=== PATIENT | female | born 1950 | race Caucasian/White ===

== ENCOUNTER 2024-05-19 11:30 | Outpatient (REF) | payer MEDICARE, OTHER, SELFPAY ==
--- OUTSIDE RECORDS SUMMARY | 2024-05-19 11:37 | XMS_ITS | Continuity of Care Document ---
Author Organization [place], Main Office Address [address] [facility] [address] [place] [address] Care Team Providers Care Tank Storage Supervisor Name Role Phone HERBER WOLFF Primary Care Provider SARAH BARBER Referring Provider [phone] NIK FLOWER Referring Provider [phone] LUISA LEGGETT Referring Provider [phone] CHANO GUEVARA General Surgeon SHANTELLE FAITH Referring Provider ELVA PANG Orthopedic Surgeon Assessment Encounter Date Assessment Date Assessment LastModified by Organization Details LastModified Time 04/26/2024 04/26/2024 Discussed with patient the signs/symptom s warranted for a return to office visit and/or an ER visit. Patient understood and agreed with the plan. [email or web address] Not available 04/26/2024 14:30:21 Plan of Treatment Reminders Order Date Submit Date Provider Last Modified By Organization Details Last Modified Time Details Appointments FOLLOW UP 30MIN 2024 12:45P M Herber davies MD Not available Not available Not available Lab None recorded . Referral None recorded . Procedures cerumen removal (PROC) 2023 024 LEANN In-Office Order, Internal Use Only DO Not Attach Compendium DO Not Attach Compendium, Do Not Delete/merge, [id number] 04/26/2024 15:09:37 Surgeries None recorded . Imaging None recorded . Medication Orders None recorded . Patient TargetsNo targets recorded. Patient InstructionsNo instructions recorded. Reason for Referral None Reported. Results Created Date Observation Date Name Description Value Unit Range Abnormal Flag Note LastModifiedBy Organization Detail LastModifiedTime 04/26/20 24 04/26/2024 cerum en remov al (PROC ) done by Jacinta Not Available In-Office Order Internal Use Only DO Not Attach Compendium DO Not Attach Compendium, Do Not Delete/merge, [id number] 04/26/2024 14:16:31 Result Notes None recorded. Problems Name Problem SNOMED Code Status Onset Date Resolution Date Notes Provider Name and Address Organization Details Recorded Time Screenin g for malignan t neoplasm of cervix Completed 201201/10/2014 RECORDED 05/17/20 13 8:21AM BY SHARON DE OLIVEIRA ON/J CARLOS Wolff MD [address] [facility] [address], [place], [address] , [facility], [place] 6 07:11:06 Screenin g for malignan t neoplasm of colon Completed 201201/10/2014 RECORDED 05/17/20 13 8:21AM BY SHARON DE OLIVEIRA ON/J CARLOS Wolff MD [address] [facility] [address], [place], [address] , [facility], [place] 6 07:11:06 Cough [id number] Completed 201201/10/2014 IMPRESSI ON: X 4 DAYS, NO FEVERS AND WITH CLEAR LUNGS. PER PT REPORT DOES HAVE TENDENCY TO DEVELOP BRONCHIT IS. PROVIDED WITH SAMPLE ADVAIR INHALER AND INSTRUCT ED RE USE. REC REST, FLUIDS, OTC COUGH MED OK. CALL OFFICE FOR WORSENIN G/PRN.; RECORDED 05/17/20 13 8:21AM BY SHARON DE OLIVEIRA ON/J CARLOS Montenegro [place] [facility] 7 11:20:15 Influenz a vaccine needed [id number] 06 Completed 201201/10/2014 RECORDED 05/17/20 13 8:21AM BY SHARON DE OLIVEIRA/J CARLOS Wolff MD [address] [facility] [address], [place], [address] , [facility], [place] 6 07:11:06 Adult health examinat ion Completed 201201/10/2014 RECORDED 05/17/20 13 8:20AM BY SHARON DE OLIVEIRA ON/J CARLOS Wolff MD [address] [facility] [address], [place], [address] , [facility], [place] 6 07:11:06 Hypercho lesterol emia 03026298 Completed 201101/10/2014 RECORDED 04/20/20 12 12:49PM BY SHARON DE OLIVEIRA ON/J CARLOS Wolff MD [address] [facility] [address], [place], [address] , [facility], [place] 6 07:11:06 Impacted cerumen 71601491 Completed 201201/10/2014 RECORDED 05/17/20 13 8:21AM BY SHARON DE OLIVEIRA ON/J CARLOS Montenegro [facility] 7 11:19:47 Injury of elbow 460681618 Completed 201301/10/2014 RECORDED 08/11/19 14 8:21AM BY SHARON DE OLIVEIRA ON/J CARLOS Wolff MD [address] [facility] [address], [place], [address] , [facility], [place] 6 07:11:06 Screenin g for malignan t neoplasm of breast Completed 201201/10/2014 RECORDED 05/17/20 13 8:21AM BY SHARON DE OLIVEIRA/J CARLOS Wolff MD [address] [facility] [address], [place], [address] , [facility], [place] 6 07:11:06 Neck pain 41553084 Completed 201201/10/2014 STORY: PROBLEM SINCE 2007. SEEN BY DR NEWMAN, DR COHEN AND DR TEJEDA. ALSO SEEN BY ACUPUNCT URE AND CHIROPRA CTY AND PAIN MGMT. RECD INJECTIO NS W/O MUCH HELP. WANTS TO AVOID NARCOTIC S. USING TRAMADOL AND SKELAXIN WITH SOME HELP.; RECORDED 08/18/19 13 9:12AM BY SHARON DE OLIVEIRA ON/J CARLOS Wolff MD [address] [facility] [address], [place], [address] , [facility], [place] 6 07:11:06 Osteoart hritis 804924286 Completed 201201/10/2014 STORY: INVOLVIN G MOST JOINTS. SEEN BY RHEUM IN THE PAST. ADVISED ON EXERCISE AND NSAID'S. ; RECORDED 08/18/19 13 9:12AM BY SHARON DE OLIVEIRA ON/ADDLETY Wolff MD [address] [facility] [address], [place], [address] , [facility], [place] 6 07:11:06 Impacted cerumen 84551693 Completed 08/12/2016 Sheeba espana, [place] [facility] 7 11:19:47 Otalgia 32948361 Active Not Available [facility] 3 22:22:04 Acute upper respirat ory infectio n 16618418 Completed 08/12/2016 Sheeba espana [facility] 7 11:20:01 Wheezing 84266492 Completed 08/12/2016 Sheeba espana [facility] 7 11:19:58 Syncope 554421373 Completed 08/12/2016 Sheeba espana, [facility] 7 11:19:43 Hearing loss 92765020 Active hearing aids may be helpful but she is currentl y not interest ed. Not Available [facility] 3 22:22:04 Paresthe [facility] 463552698 Active Followed by Dr Barber and schedule d for EMG Not Available [facility] 3 22:22:04 Adult health examinat ion Completed 04/06/2015 Herber Wolff MD [address] [facility] [address], [place], [address] , [facility], [place] 6 07:11:06 Yaima chavez present 223506720 Active Not Available [facility] 3 22:22:04 Osteopor osis 31578650 Active Not Available [facility] 3 22:22:04 Multiple joint pain 73328733 Completed 09/25/2016 [facility] 16:05[facility]33 Patient status finding [id number] Completed 201303/29/2014 RECORDED 08/11/19 14 3:33PM BY SELVIN HERNADEZ MA, OFFICE VISIT Herber Wolff MD [address] [facility] [address], [place], [address] , [facility], [place] 6 07:11:06 Screenin g for malignan t neoplasm of cervix Completed 201212/14/2013 RECORDED 05/17/20 13 8:21AM BY SHARON DE OLIVEIRA ON/ADDEN DUM Herber Wolff MD [address], [place], [address] , [facility], [place] 6 07:11:06 Back problem 748236076 Completed 201303/29/2014 RECORDED 08/11/19 14 3:33PM BY SELVIN HERNADEZ MA, OFFICE VISIT Herber Wolff MD [address] [facility] [address], [place], [address] , [facility], [place] 6 07:11:06 Low back pain 671764276 Active PSSP; received injectio n for radiculo stefanie and paresthe anna Not Available [facility] 3 22:22:04 Chronic pain 68625942 Active On pain meds initiall y started by Dr Bailey. HILLARY Berger, [place] [facility] 4 14:06:20 Screenin g for malignan t neoplasm of colon Completed 201212/14/2013 RECORDED 05/17/20 13 8:21AM BY SHARON DE OLIVEIRA ON/ADDLETY Wolff MD [address] [address], [place], [address] , [facility], [place] 6 07:11:06 Constipa tion 15985536 Active Not Available [facility] 3 22:22:04 Cough 80732265 Completed 201212/14/2013 IMPRESSI ON: X 4 DAYS, NO FEVERS AND WITH CLEAR LUNGS. PER PT REPORT DOES HAVE TENDENCY TO DEVELOP BRONCHIT IS. PROVIDED WITH SAMPLE ADVAIR INHALER AND INSTRUCT ED RE USE. REC REST, FLUIDS, OTC COUGH MED OK. 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 Not Available [facility] 3 22:22:04 Pain in elbow 64199208 Completed 08/12/2016 Sheeba espana, [facility] 7 11:20:12 Influenz a vaccine needed 23486534337 06 Completed 201212/14/2013 RECORDED 05/17/20 13 8:21AM BY SHARON DE OLIVEIRA/J CARLOS Wolff MD [address] [facility] [address], [place], [address] , [facility], [place] 6 07:11:06 Adult health examinat ion Completed 201212/14/2013 RECORDED 05/17/20 13 8:20AM BY SHARON DE OLIVEIRA ON/J CARLOS Wolff MD [address], [place], [address] , [facility], [place] 6 07:11:06 History of malignan t neoplasm of cervix 495794040 Completed 08/12/2016 Sheeba espana, [facility] 7 11:19:55 Pure hypercho lesterol emia 234526120 Completed 07/03/2016 Herber Wolff MD [address], [place], [address] , [facility], [place] 7 16:02:27 Hypercho lesterol emia 11212236 Completed 201112/14/2013 RECORDED 04/20/20 12 12:49PM BY DAVONTE GREENFIELD I ANNOTATI ON/ADDEN DUM Herber Wolff MD [address], [place], [address] , [facility], [place] 6 07:11:06 Impacted cerumen 10345855 Completed 201212/14/2013 RECORDED 05/17/20 13 8:21AM BY SUZANNE DE OLIVEIRAATI ON/ADDEN DUM Sheeba espana, [facility] 7 11:19:47 Injury of elbow 892302176 Completed 201312/14/2013 RECORDED 08/11/19 14 8:21AM BY SUZANNE DE OLIVEIRAATI ON/ADDEN DUM Herber Wolff MD [address], [place], [address] , [facility], [place] 6 07:11:06 Screenin g for malignan t neoplasm of breast Completed 201212/14/2013 RECORDED 05/17/20 13 8:21AM BY SUZANNE DE OLIVEIRAATI ON/ADDEN DUM Herber Wolff MD [address], [place], [address] , [facility], [place] 6 07:11:06 Neck pain 26437436 Completed 201212/14/2013 STORY: PROBLEM SINCE 2007. SEEN BY DR NEWMAN, DR COHEN AND DR TEJEDA. ALSO SEEN BY ACUPUNCT URE AND CHIROPRA CTY AND PAIN MGMT. RECD INJECTIO NS W/O MUCH HELP. WANTS TO AVOID NARCOTIC S. USING TRAMADOL AND SKELAXIN WITH SOME HELP.; RECORDED 08/18/19 13 9:12AM BY SHARON DE OLIVEIRA ON/J CARLOS Wolff MD [address] [facility] [address], [place], [address] , [facility], [place] 6 07:11:06 Osteoart hritis 011261337 Completed 201212/14/2013 STORY: INVOLVIN G MOST JOINTS. SEEN BY RHEUM IN THE PAST. ADVISED ON EXERCISE AND NSAID'S. ; RECORDED 08/18/19 13 9:12AM BY SHARON DE OLIVEIRA ON/J CARLOS DUM Herber Wolff MD [address] [facility] [address], [place], [address] , [facility], [place] 6 07:11:06 Chronic pain syndrome 506681295 Completed 201303/29/2014 IMPRESSI ON: RECEIVIN G MEDS FROM PAIN MGMT BUT MAY HAVE THIS TRANSFER RED HERE.; RECORDED 11/02/19 14 8:06AM BY ALIYAH DENISE, HISTORIC AL SUMMARY Herber Wolff MD [address] [facility] [address], [place], [address] , [facility], [place] 6 07:11:06 Inspirat ory wheezing 69884808 Active Not Available [facility] 3 22:22:04 Upper respirat ory infectio n 02412430 Completed 08/12/2016 Sheeba espana, [facility] 7 11:20:18 Cough 41369884 Completed 08/12/2016 Sheeba espana, [facility] 7 11:20:15 Chronic neck pain 58858741627 07 Active 2006 Not Available [facility] 3 22:22:04 Fatigue 25098148 Completed 201609/22/2017 Herber Wolff MD [address] [facility] [address], [place], [address] , [facility], [place] 8 17:05:44 Hyperlip idemia 52471818 Active 2017 Not Available [facility] 3 22:22:04 Fatigue 31149657 Active 2017 Not Available [facility] 3 22:22:04 Idiopath ic peripher al neuropat hy 36584007 Active 2017 Not Available [facility] 3 22:22:04 Muscle spasm of head and/or neck 90782603 Active 2018 Not Available [facility] 3 22:22:04 Pain of right shoulder joint 26552521137 373582 Active 2020 Injected at [facility] October 2020. Not Available [facility] 3 22:22:04 Pneumoni tis 373399739 Active 2022 Not Available [facility] 3 22:22:04 Hypergly cemia 43545739 Active 2023 A1C of 6.October. Herber Wolff MD [address] [facility] [address], [place], [address] , [facility], [place] 4 14:26:34 Notes:Some problems listed i n Document: #[id number] could not be added to this patient's chart. Please review this document and add these problems to the patient's chart manually as needed. Problem Notes None recorded. Procedures Surgical History Date Name Laterality Status Provider Name and Address Organization Details Recorded Time 04/26/20 24 Cerumen Removal completed KEILA DYE [address] [facility] [address], [place], [address], [facility], [place] 04/26/2024 14:59:16 01/08/20 24 Chronic Pain Assessment completed Jacinta Babin, MA [facility] 01/08/2024 14:05:00 11/15/19 23 Chronic Pain Assessment completed Kylah yWatt MA [facility] 11/14/2022 14:11:38 09/07/19 23 Cerumen Removal completed MARGOT KEMP MD [address], [place], [address], [facility], [place] 09/06/2022 09:41:32 08/31/19 23 Cerumen Removal completed MARGOT KEMP MD [address], [place], [address], [facility], [place] 08/30/2022 11:12:20 07/24/19 23 Chronic Pain Assessment completed Kenzie Mcconnell MA [facility] 07/24/2022 14:16:12 05/01/20 22 Chronic Pain Assessment completed Kylah Wyatt MA [facility] 05/01/2022 14:26:55 01/03/20 22 Chronic Pain Assessment completed Kylah Wyatt MA [facility] 01/02/2022 11:08:11 09/27/19 22 Chronic Pain Assessment completed Kylah Wyatt MA [facility] 09/26/2021 15:29:54 06/27/19 22 Chronic Pain Assessment completed Kylah Wyatt MA [facility] 06/27/2021 14:03:36 12/19/19 21 Chronic Pain Assessment completed Jacinta Babin MA [facility] 12/18/2020 13:17:40 11/17/19 21 injection completed Dorcas Denise [facility] 12/22/2020 15:02:09 09/21/19 21 Chronic Pain Assessment completed Sue Flynn MA [facility] 09/20/2020 14:24:01 06/22/19 21 Chronic Pain Assessment completed Sue Flynn MA [facility] 06/22/2020 14:21:42 03/28/20 20 Chronic Pain Assessment completed Sue Flynn MA [facility] 03/28/2020 13:40:48 12/14/19 20 Chronic Pain Assessment completed Sue Flynn MA [facility] 12/14/2019 14:42:58 09/09/19 20 Chronic Pain Assessment completed Davonte Sheikh [facility] 09/09/2019 12:46:13 06/14/19 20 Chronic Pain Assessment completed Davonte Sheikh [facility] 06/14/2019 14:30:13 03/08/20 19 Chronic Pain Assessment completed Davonte Sheikh [facility] 03/08/2019 15:02:32 12/08/19 19 Chronic Pain Assessment completed Davonte Sheikh [facility] 12/07/2018 14:49:14 09/11/19 19 Chronic Pain Assessment completed uJd Weldon [place] [facility] 09/10/2018 16:16:55 06/15/19 19 Chronic Pain Assessment completed Davonte Sheikh [facility] 06/15/2018 09:38:32 03/26/20 18 open capsulectomy of breast completed Dorcas Denise [facility] 04/01/2018 11:51:23 03/26/20 18 lumpectomy of breast completed Madelaine chaudhari MA [facility] 07/15/2019 15:50:25 03/13/20 18 Chronic Pain Assessment completed Terri Xie [facility] 03/13/2018 16:30:49 01/08/20 18 Chronic Pain Assessment completed Davonte Sheikh [facility] 01/07/2018 14:17:18 09/23/19 18 Mini-Cog Test completed Sheeba Montenegro MA [facility] 09/22/2017 14:35:59 09/23/19 18 Chronic Pain Assessment completed Sheeba Montenegro MA [facility] 09/22/2017 14:32:39 03/27/20 17 Chronic Pain Assessment completed Davonte Sheikh [facility] 03/27/2017 09:31:05 12/26/19 17 Chronic Pain Assessment completed Davonte Sheikh [facility] 12/25/2016 15:45:16 09/26/19 17 Chronic Pain Assessment completed Sheeba Montenegro MA [facility] 09/25/2016 16:10:30 04/02/20 16 Chronic Pain Assessment completed Jacinta Babin MA [facility] 04/02/2016 16:14:32 01/01/20 16 Chronic Pain Assessment completed Davonte Sheikh [facility] 01/01/2016 14:30:55 10/04/19 16 Chronic Pain Assessment completed Davonte Sheikh [facility] 10/04/2015 16:30:48 09/11/19 16 Biopsy skin lesion completed Samaria Hays [facility] 09/14/2015 11:29:12 06/26/19 16 Most Recent Bone Density completed Kylah Wyatt MA [facility] 09/26/2021 15:16:35 05/09/20 15 Breast Implants completed Dorcas Denise [facility] 05/11/2015 15:24:44 11/22/19 15 Most Recent Mammogram completed Kylah Wyatt MA [facility] 09/26/2021 15:15:56 11/22/19 15 Screen mammo doc rev completed Davonte Sheikh [facility] 04/05/2015 11:08:02 07/29/19 15 Echo Transthoracic completed Herber Wolff MD [address], [address] 10/05/2014 06:57:19 02/01/20 13 Cancer Surgery completed Kylah Wyatt MA [facility] 09/26/2021 15:14:54 11/01/19 13 Breast Biopsy completed Kylah Wyatt MA [facility] 09/26/2021 15:14:54 11/27/19 08 Date of Last Colonoscopy completed Madelaine chaudhari MA [facility] 09/28/2021 14:12:22 11/27/19 08 Colonoscopy completed Madelaine chaudhari MA [facility] 09/28/2021 14:13:39 06/02/19 Orthopedic Surgery completed Kylah Wyatt MA [facility] 09/26/2021 15:14:54 06/02/19 Orthopedic Surgery completed Herber Wolff MD [address] [facility] [address], [place], [address], [facility], [place] 03/29/2014 13:48:05 08/31/18 76 Cancer Surgery completed Davonte Sheikh [facility] 07/06/2015 15:30:36 Partial hysterectomy completed Madelaine chaudhari MA [facility] 07/15/2019 15:50:37 Imaging Results None recorded. Procedure Notes None recorded. Medical Equipment None Reported. Allergies Allergen ID Allergen Name Allergen Category Reaction Reaction Severity Criticality Documentation Date Start Date Code Code System Note Provider Name and Address Organization Details Recorded Time 58329 diclofena c Not available nausea severe Not available 12/18/2020 3355 RxNorm Not Available [facility] 3 22:22:01 4835 Vaccine product containin g only Clostridi um tetani antigen (medicina l product) medicatio n Not available Not available Not available 12/14/20132013 90887 2002 SNOMED Sheeba Chenchoby [place] espana [facility] 7 16:07:23 Medications Name Sig Start Date Stop Date Status Note LastModified by Organization Details LastModified Time cephalexi n 500 mg caps active Not Available Not Available Not Available simvastat in 20 mg tabs active Not Available Not Available Not Available tramadol hcl er 100 mg tb24 active Not Available Not Available Not Available fluarix quadrival ent 1895-8734 .5 ml lobo active Not Available Not Available Not Available Prescript ion - Prior Authoriza tion Request 10/07 completed Not Available Not Available Not Available diazepam 5 mg tabs active Not Available Not Available No t Available tretinoin 0.025 % crea active Not Available Not Available Not Available gabapenti n 300 mg caps active Not Available Not Available Not Available nortripty line hcl 10 mg caps active Not Available Not Available Not Available metaxalon e 800 mg tabs 4 tablets daily 04/28 completed Not Available Not Available Not Available methylphe nidate hcl 10 mg tabs active Not Available Not Available Not Available tramadol hcl 50 mg tabs active Not Available Not Available Not Available fentanyl 25 mcg/hr pt72 active Not Available Not Available Not Available fluticaso ne propionat e 50 mcg/act susp active Not Available Not Available Not Available proair hfa 108 (90 base) mcg/act aers active Not Available Not Available Not Available fentanyl 50 mcg/hr transderm al patch 1 patch every 72 hours 09/20 completed Not Available Not Available Not Available Augmentin 875 mg-125 mg tablet Take 1 tablet every 12 hours by oral route as directed for 10 days. 06/15 completed Not Available Not Available Not Available levorphan ol tartrate 2 mg tablet active Not Available Not Available Not Available azithromy tisha 250 mg tablet TAKE 2 TABLETS (500 MG) BY ORAL ROUTE ONCE DAILY FOR 1 DAY THEN 1 TABLET (250 MG) BY ORAL ROUTE ONCE DAILY FOR 4 DAYS 07/09 completed Not Available Not Available Not Available methylphe nidate 10 mg tablet Take 2 tablets 3 times a day by oral route as directed . active Not Available Not Available No t Available valacyclo vir 1 gram tablet 12/31 completed Not Available Not Available Not Available Debrox 6.5 % ear drops INSTILL 5 DROPS INTO AFFECTED EAR(S) BY OTIC ROUTE 2 TIMES PER DAY 01/03 completed Not Available Not Available Not Available Advair Diskus 100 mcg-50 mcg/dose powder for inhalatio n TWO TIMES DAILY 09/18 completed RECORDED 09/20/19 13 9:59AM BY MARIALUISA LA, PAJodyC, MEDICATI ON AUTO-YARITZA CTIVATIO N; Not Available Not Available Not Available topiramat e 25 mg tablet 1 TABLET TWICE A DAY FOR 1 WEEK THEN 2 TABLETS TWICE A DAY FOR 1 WEEK, THEN 3 TABLETS TWICE A DAY FOR 1 WEEK, THEN 4 TABLETS TWICE A DAY FOR 1 WEEK. active Not Available Not Available No t Available tramadol 50 mg tablet TAKE 1 TABLET BY MOUTH EVERY 6 HOURS active Not Available Not Available No t Available cefadroxi l 500 mg capsule active Not Available Not Available Not Available oxycodone -acetamin ophen 5 mg-325 mg tablet active Not Available Not Available Not Available clonidine HCl 0.2 mg tablet Take 1 tablet twice a day by oral route for 15 days. 06/15 completed Not Available Not Available Not Available amoxicill in 875 mg tablet TAKE 1 TABLET BY MOUTH TWICE A DAY UNTIL FINISHED START 1 DAY BEFORE SURGERY 01/02 completed Not Available Not Available Not Available hydromorp eladio 2 mg tablet active Not Available Not Available Not Available diazepam 2 mg tablet active Not Available Not Available Not Available sennoside s 15 mg tablet DAILY active RECORDED 08/11/19 14 3:38PM BY SELVIN HERNADEZ MA, OFFICE VISIT; Not Available Not Available Not Available cephalexi n 500 mg capsule active Not Available Not Available Not Available simvastat in 20 mg tablet TAKE 1 TABLET BY MOUTH EVERY DAY active Not Available Not Available No t Available oseltamiv ir 75 mg capsule Take 1 capsule twice a day by oral route for 5 days. 09/25 completed Not Available Not Available Not Available diclofena c sodium 75 mg tablet,de layed release TAKE 1 TABLET BY MOUTH TWICE A DAY 12/18 completed Not Available Not Available Not Available gabapenti n 100 mg capsule Take 1 capsule 3 times a day by oral route for 90 days. 06/15 completed Not Available Not Available Not Available lorazepam 1 mg tablet take 1 pill an hour before procedur e and may repeat in 1 hour if needd 12/25 completed Not Available Not Available Not Available diazepam 10 mg tablet DAILY active RECORDED 08/11/19 14 3:37PM BY SELVIN HERNADEZ MA, OFFICE VISIT; Not Available Not Available Not Available fentanyl 25 mcg/hr transderm al patch Apply 1 patch every 72 hours by transder mal route for 30 days. 04/22 completed Changed to q 48hours. Not Available Not Available Not Available albuterol sulfate HFA 90 mcg/actua tion aerosol inhaler Inhale 2 puffs every 4 hours by inhalati on route as needed for cough for 30 days. 12/13 completed Not Available Not Available Not Available morphine 15 mg immediate release tablet active Not Available Not Available Not Available fentanyl 75 mcg/hr transderm al patch APPLY 1 PATCH TOPICALL Y EVERY 72 HOURS DIRECTED active Not Available Not Available No t Available brompheni ramine-ps eudoephed rine-DM 2 mg-30 mg-10 mg/5 mL oral syrup Take 10 mL every 4 hours by oral route as directed for 4 days. 07/09 completed Not Available Not Available Not Available fluticaso ne propionat e 50 mcg/actua tion nasal spray,eris pension SPRAY 2 SPRAYS INTO EACH NOSTRIL EVERY DAY 07/24 completed topical pretreat ment for patch not nasal spray Not Available Not Available Not Available sertralin e 50 mg tablet TAKE 1 TABLET BY MOUTH EVERY DAY. 12/25 completed Not Available Not Available Not Available diazepam 5 mg tablet TAKE 1 TABLET BY MOUTH TWICE A DAY active Not Available Not Available No t Available Skelex 100 mg/mL injection solution active RECORDED 08/18/19 13 9:34AM BY HERBER DUPONT MD, ANNOTATI ON/J CARLOS DUM; Not Available Not Available Not Available metaxalon e 800 mg tablet TAKE 1 TABLET BY MOUTH FOUR TIMES A DAY NEEDED active Not Available Not Available No t Available Senna Laxative 25 mg tablet Take 1 tablet 3 times a day by oral route. 01/01 completed Not Available Not Available Not Available fentanyl 12 mcg/hr transderm al patch EVERY 3 DAYS active RECORDED 08/11/19 14 3:33PM BY SELVIN HERNADEZ MA, OFFICE VISIT; Not Available Not Available Not Available chlorhexi dine gluconate 0.12 % mouthwash SWISH MOUTH W/ 15ML TWICE A DAY HOLD FOR 30 SECS THEN SPIT.DO NOT SWALLOW. START MORNING OF SURGERY 01/02 completed Not Available Not Available Not Available Calcium + D DAILY 08/10 completed RECORDED 08/11/19 14 3:37PM BY SELVIN HERNADEZ MA, OFFICE VISIT; Not Available Not Available Not Available tramadol ER 100 mg tablet,ex tended release 24 hr TAKE 1 TABLET BY MOUTH TWICE A DAY active Not Available Not Available No t Available Mucinex DM 60 mg-1,200 mg tablet,ex tended release 12 hr Take by oral route twice a day as needed 04/02 completed Not Available Not Available Not Available Fluvirin 1325-3013 45 mcg (15 mcg x 3)/0.5 mL intramusc ular suspensio n active Not Available Not Available Not Available naloxone 4 mg/actuat ion nasal spray one spray in one nostril, may repeat dose every 2-3min until pt responsi ve or EMS arrives 12/13 completed Not Available Not Available Not Available Fluzone High-Dose 4397-6518 (PF) 180 mcg/0.5 mL intramusc ular syringe 04/02 completed Not Available Not Available Not Available Robitussi n Cough-Dorie st Congestio n DM 5 mg-100 mg/5 mL oral liquid Take 5 mL by oral route for 7 days. 09/08 completed Not Available Not Available Not Available Paxlovid 300 mg (150 mg x 2)-100 mg tablets in a dose pack TAKE 3 TABLETS BY MOUTH TWICE A DAY FOR 5 DAYS 09/26 completed Not Available Not Available Not Available Vitals Date Recorded Body height Body mass index (BMI) Body weight Heart rate Oxygen saturation Oxygen saturation in Arterial blood by Pulse oximetry Body temperature Systolic blood pressure Diastolic blood pressure Provider Name and Address Organization Details Last Updated DateTime 4 157.48 cm 18.7 kg/m2 75896.1 2 g 97 /min 96 % 96 % 97.9 [degF] 109 mm[Hg] 69 mm[Hg] Kayleigh Mays [facility] 4 14:11:19 Social History Question Answer Notes LastModified by Organizat ion Details LastModified Time Tobacco Smoking Status Never Smoker Not Available [employer] 04/04/2020 03:36:36 Do You Have An Advance Directive? Yes Information not available 05/01/2022 What Is Your Level Of Alcohol Consumption? None [id number] Information not available 04/04/2020 Is Blood Transfusion Acceptable In An Emergency? Yes [id number] Information not available 04/04/2020 What Is Your Level Of Caffeine Consumption? Moderate 1 Cup Coffee Daily Information not available 11/14/2022 How Much Tobacco Do You Chew? None [id number] Information not available 04/04/2020 In The 14 Days Before Symptom Onset, Have You Had Close Contact With A [facility] [employer]19 While That Case Was Ill? No Information not available 05/01/2022 In The 14 Days Before Symptom Onset, Have You Had Close Contact With A Person Who Is Under Investigation For COVID-19 While That Person Was Ill? No Information not available 05/01/2022 Have You Been To An Area Known To Be High Risk For COVID-19? No Information not available 05/01/2022 Are You Currently Employed? No Information not available 09/26/2021 What Type Of Diet Are You Following? REGULAR [id number] Information not available 04/04/2020 Which Illicit Or Recreational Drugs Have You Used? None [id number] Information not available 04/04/2020 Do You Or Have You Ever Used E-cigarettes Or Vape? 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 16+yearssincel mainsoni Information not available 09/26/2021 Live Alone Or With Others? With Others Information not available 05/01/2022 Do You Take Precautions To Prevent Distracted Driving? Yes see Information not available 04/05/2015 How Often Do You Need To Have Someone Help You When You Read Instructions, Pamphlets, Or Other Written Material From Your Doctor Or Pharmacy? Never [email or web address] Information not available 04/05/2015 Have You Served In The ? No [email or web address] Information not available 07/03/2016 Have You Or Anyone In Your Household Had Any Of The Following Symptoms In The Last 14 Days: Sore Throat, Cough, Chills, Body Aches For Unknown Reasons, Shortness Of Breath For Unknown Reasons, Loss Of Smell, Loss Of Taste, Fever At Or Greater Than 100 Degrees Fahrenheit? No [email or web address] Information not available 12/14/2019 Are You Or Anyone In Your Household A Health Care Provider Or Emergency Responder? No [email or web address] Information not available 12/14/2019 To The Best Of Your Knowledge Have You Been In Close Proximity To Any Individual Who Tested Positive For COVID-19? No Information not available 12/14/2019 Have You Recently Traveled To A [facility] High Risk Area Or Gathering In The Last 10 Days? No [email or web address] Information not available 06/22/2020 What Was The Date Of Your Most Recent Tobacco Screening? 10/08/2023 [email or web address] Information not available 10/08/2023 How Many Children Do You Have? 0 Information not available 09/26/2021 Do You Use Protection During Sex? No Information not available 09/26/2021 Do You Use Your Seat Belt Or Car Seat Routinely? Yes Information not available 09/26/2021 Seat Belts Used Routinely Yes Information not available 05/01/2022 Are You Sexually Active? No [id number] Information not available 04/04/2020 Smoke Alarm In Home Yes Information not available 05/01/2022 Do You Have Smoke And Carbon Monoxide Detectors In Your Home? Yes Information not available 09/26/2021 At What Age Did You Start Smoking Tobacco? 17 Information not available 09/26/2021 Are You Passively Exposed To Smoke? No Information no t available 09/26/2021 Do You Or Have You Ever Used Smokeless Tobacco? Never Used Smokeless Tobacco [id number] Information not available 04/04/2020 How Much Tobacco Do You Smoke? No [id number] Information not available 04/04/2020 Do You Use Any Illicit Or Recreational Drugs? No Information not available 05/01/2022 Do You Use Sunscreen Routinely? Yes [id number] Information not available 04/04/2020 How Many Years Have You Smoked Tobacco? 1 Information not available 09/26/2021 Do You Or Have You Ever Used Any Other Forms Of Tobacco Or Nicotine? No Information not available 05/01/2022 Sex: Unknown Functional Status Question Answer Note LastModified by Organization D etails LastModified Time Are you able to walk? YESWOREST Information not available 05/01/2022 Are you able to care for yourself? Yes [id number] Information not available 04/04/2020 What is your exercise level? Moderate Information not available 09/26/2021 Mental Status None recorded. Family History Relationship Description Onset Age of this Age Resolved Age Notes LastModified by Organization Details LastModified Time Mother Suicide 80 Not available 05/01/2022 14:01:24 Mother Arthritis Not available 09/26/2021 15:14:52 Mother Alcohol abuse 80 [email or web address] Not available 10/31 14:19:21 Father Congestive heart failure 79 Not available 2021 14:01:24 Brother Pneumonia 1 Not availab le 05/01/2022 14:01:24 Brother Malignant tumor of lung 59 [email or web address] Not available 01/2024 15:08:35 Brother Motor vehicle accident victim 17 Not available 2021 14:01:24 Brother Motor vehicle accident victim 23 Not available 2021 14:01:24 Sister Dementia [email or web address] Not availa ble 10/08/2023 15:08:10 Sister Congestive heart failure 70 [email or web address] Not available 01/2024 15:09:00 Notes:4 brothers and 2 siste r; only 1 sister still living. Medical History Condition Response Gout N Other N Kidney Stones N Blood Diseases N Hyperthyroidism N Breast Cancer Y COPD N Depression N Lung Disease N Hypothyroidism N Defects or Inherited Disease N Anesthesia Complications N Headaches/Migraines N Anxiety Disorder N Varicose Veins N Obesity N Vision or Eye Problems Y Arthritis Y Head Injury/Concussion N Polyps N Infertility N Congenital Anomalies N Acid Reflux (GERD) N Cancer Y Stroke N ADHD N Endometriosis N High Cholesterol N Liver Disease N Fibromyalgia N Kidney Disease N Heart Problems N Ear or Hearing Problems N Hospitalizations N Thyroid Problems N GI Problems N Acne N Eating Disorder N Skin Problems N Anemia N Constipation N Bladder Problems N Mental Illness N Diabetes N Ovarian Cancer N Blood Transfusions N Seizures/Epilepsy N Tuberculosis N AIDS/HIV N Congestive Heart Failure (CHF) N Eczema N Abuse/Domestic Violence N Diverticulitis N Asthma N Allergies N Reflux/GERD N Hepatitis N Pulmonary Embolism N Hypertension N Chicken Pox N Autism Spectrum Disorder (ASD) N Osteoporosis N Gynecological History Statement/Question Response Date of Last Colonoscopy 11/27/2007 Most Recent Mammogram 11/21/2014 Most Recent Bone Density 06/26/2015 Obstetrics History GPAL:G 0 P 0 0 0 0 Immunizations Vaccine Type Date Status Note Provider Nam e and Address Organization Details Recorded Time Influenza, split virus, trivalent, PF 5 completed Not Available [facility] 01/09/2023 22:22:05 Influenza, high-dose, trivalent, PF 6 completed Not Available [facility] 01/09/2023 22:22:04 COVID-19, mRNA, LNP-S, PF, 100 mcg/0.5mL dose or 50 mcg/0.25mL dose 1 completed Not Available [facility] 01/09/2023 22:22:04 COVID-19, mRNA, LNP-S, PF, 100 mcg/0.5mL dose or 50 mcg/0.25mL dose 1 completed Not Available [facility] 01/09/2023 22:22:04 Influenza, split virus, trivalent, preservative 4 completed Not Available [facility] 01/09/2023 22:22:05 pneumococcal polysaccharide PPV23 5 completed Not Available [facility] 06/19/2019 02:21:42 Influenza, high-dose, trivalent, PF 6 completed Not Available [facility] 01/09/2023 22:22:04 Influenza, high-dose, trivalent, PF 6 completed Not Available [facility] 01/09/2023 22:22:05 Influenza, adjuvanted, trivalent, PF 4 completed Isabella Mayorga MA [facility] 04/06/2024 14:31:53 Pneumococcal conjugate PCV 13 7 completed Not Available [facility] 06/19/2019 02:21:37 Influenza, high-dose, trivalent, PF 7 completed Not Available [facility] 06/19/2019 02:22:21 Influenza, high-dose, trivalent, PF 8 completed Not Available [facility] 06/19/2019 02:22:14 Influenza, split virus, trivalent, PF 2 completed Not Available [facility] 01/09/2023 22:22:05 influenza, seasonal, intradermal, preservative free 3 completed Not Available [facility] 01/09/2023 22:22:05 Influenza, high-dose, trivalent, PF 0 [facility] 16:02:23 Influenza, high-dose, quadrivalent, PF 0 completed Herber Wolff MD [address], [id number], [facility] [place], [place] 03/28/2020 13:58:34 Influenza, high-dose, quadrivalent, PF 1 [facility] 03/21/2021 15:25:06 Influenza, high-dose, quadrivalent, PF 3 completed Herber Wolff MD [address], [id number], [facility] [place], [place] 03/05/2023 18:41:17 Past Encounters Encounter ID Performer Location Encounter Start Date Encounter Closed Date Diagnosis/Indication Diagnosis SNOMED-CT Code Diagnosis ICD10 Code [id number] Herber Wolff MD Main Office [address] [address] 04/06/2024 14:26:38 04/06/2024 15:32:44 Chronic pain 79606936 G89.29 Idiopathic peripheral neuropathy 73095858 G60.9 Prediabetes 799956798 R7 3.03 Anxiety ab out loss of memory 510589208 F41.8 [id number] KEILA DYE Main Office [address] [address] 04/26/2024 13:59:31 04/26/2024 14:57:43 Impacted cerumen of bilateral ears 4207378364 410936 H61.23 Health Concerns Section Related Observation LastModified by Organization Mikie oh LastModified Time None Recorded Concern Status LastModified by Organization Details LastModified Time None Recorded Payers Encounter Date Sequence Insurance Name Policy Number Policy Costello Covered Member ID Costello Member ID Guarantor Name 04/26/2024 2 [facility] (MEDICARE SUPPLEMENT) Jacqueline Fallon [id number] Jacqueline Fallon 04/26/2024 1 MEDICARE B-SC: [facility] Jacqueline Fallon [id number] Jacqueline Fallon Notes Date Note Type Note Provider Name and Address Organization Details Recorded Time 04/26/2024 text/html Jacqueline is a 74yr old F who presents for bilateral ear lavage. Reports she has a hx of cerumen build up and gets ear lavage about every 3 months. KEILA DYE [address] [facility] [address], [place], [address], [facility] [place], [place] 04/26/2024 14:59:45 OBGyn Episode No OBEpisode recorded.
--- OUTSIDE RECORDS SUMMARY | 2024-05-19 11:38 | XMS_ITS | Continuity of Care Document ---
Author Organization [facility], Main Office Address [address] [facility] [address] [place] [address] Care Team Providers Care Rn Coronary Care Unit Name Role Phone HERBER WOLFF Primary Care Provider SARAH BARBER Referring Provider NIK FLOWER Referring Provider [phone] LUISA LEGGETT Referring Provider [phone] CHANO GUEVARA General Surgeon SHANTELLE FAITH Referring Provider [phone] ELVA PANG Orthopedic Surgeon Assessment No assessment recorded. Plan of Treatment Reminders Order Date Submit Date Provider Last Modified By Organization Details Last Modified Time Details Appointments FOLLOW UP 30MIN 2024 12:45P M Herber davies MD Not available Not available Not available Lab toxicol ogy screen, urine 2023 024 [email or web address] In-Office Order, Internal Use Only DO Not Attach Compendium DO Not Attach Compendium, Do Not Delete/merge, [id number] 04/07/2024 09:26:55 hemoglo bin A1C, fingers tick 2023 024 [email or web address] In-Office Order, Internal Use Only DO Not Attach Compendium DO Not Attach Compendium, Do Not Delete/merge, [id number] 04/07/2024 09:26:56 Referral neurolo gist referra l - Periphe ral neuropa thy 2023 024 [email or web address] Robert Brantley MD, [address] [place] [address] Dr, [address], [place], [address], 04/08/2024 09:24:12 Procedures None recorde d. Surgeries None recorde d. Imaging None recorde d. Medication Orders None recorde d. Patient TargetsNo targets recorded. Patient Instructions Encounter Date Encounter Id Patient Instructions Last Modified By Organization Details Last Modified Time 04/06/2024 [id number] chronic pain: care instructions uziel Not available 04/07/2024 09:26:53 Reason for Referral Neurologist Referral for [facility] peripheral neuropathy Peripheral neuropathy Referring Physician: Herber Wolff, Family Medicine, Encounter Date: 04/06/2024 Results Created Date Observation Date Name Description Value Unit Range Abnormal Flag Note LastModifiedBy Organization Detail LastModifiedTime 04/06/2004/06/2024 toxic ology scree n, urine Unknown Analyte negati ve Not Available In-Office Order Internal Use Only DO Not Attach Compendium DO Not Attach Compendium, Do Not Delete/merge, [id number] 04/06/2024 14:53:14 04/06/20 24 04/06/2024 toxic ology scree n, urine Unknown Analyte negati ve Not Available In-Office Order Internal Use Only DO Not Attach Compendium DO Not Attach Compendium, Do Not Delete/merge, [id number] 04/06/2024 14:53:14 04/06/20 24 04/06/2024 toxic ology scree n, urine Unknown Analyte positi ve Not Available In-Office Order Internal Use Only DO Not Attach Compendium DO Not Attach Compendium, Do Not Delete/merge, [id number] 04/06/2024 14:53:14 04/06/20 24 04/06/2024 toxic ology scree n, urine Unknown Analyte negati ve Not Available In-Office Order Internal Use Only DO Not Attach Compendium DO Not Attach Compendium, Do Not Delete/merge, [id number] 04/06/2024 14:53:14 04/06/20 24 04/06/2024 toxic ology scree n, urine Unknown Analyte negati ve Not Available In-Office Order Internal Use Only DO Not Attach Compendium DO Not Attach Compendium, Do Not Delete/merge, [id number] 04/06/2024 14:53:14 04/06/20 24 04/06/2024 toxic ology scree n, urine Unknown Analyte negati ve Not Available In-Office Order Internal Use Only DO Not Attach Compendium DO Not Attach Compendium, Do Not Delete/merge, [id number] 04/06/2024 14:53:14 04/06/20 24 04/06/2024 toxic ology scree n, urine Unknown Analyte negati ve Not Available In-Office Order Internal Use Only DO Not Attach Compendium DO Not Attach Compendium, Do Not Delete/merge, [id number] 04/06/2024 14:53:14 04/06/20 24 04/06/2024 toxic ology scree n, urine Unknown Analyte negati ve Not Available In-Office Order Internal Use Only DO Not Attach Compendium DO Not Attach Compendium, Do Not Delete/merge, [id number] 04/06/2024 14:53:14 04/06/20 24 04/06/2024 toxic ology scree n, urine Unknown Analyte negati ve Not Available In-Office Order Internal Use Only DO Not Attach Compendium DO Not Attach Compendium, Do Not Delete/merge, [id number] 04/06/2024 14:53:14 04/06/20 24 04/06/2024 toxic ology scree n, urine Unknown Analyte negati ve Not Available In-Office Order Internal Use Only DO Not Attach Compendium DO Not Attach Compendium, Do Not Delete/merge, [id number] 04/06/2024 14:53:14 04/06/20 24 04/06/2024 hemog lobin A1C, finge rstic k A1C 5.7 % 4-6 normal Not Available In-Office Order Internal Use Only DO Not Attach Compendium DO Not Attach Compendium, Do Not Delete/merge, [id number] 04/06/2024 15:06:29 Result Notes None recorded. Problems Name Problem SNOMED Code Status Onset Date Resolution Date Notes Provider Name and Address Organization Details Recorded Time Screenin g for malignan t neoplasm of cervix Completed 201201/10/2014 RECORDED 05/17/20 13 8:21AM BY SHARON DE OLIVEIRA ON/ADDEN ZOIE Wolff MD [address] [facility] [address], [place], [address] , [facility] 6 07:11:06 Screenin g for malignan t neoplasm of colon Completed 201201/10/2014 RECORDED 05/17/20 13 8:21AM BY SHARON DE OLIVEIRA ON/J CARLOS Wolff MD [address] [facility] [address], [place], [address] , [facility] 6 07:11:06 Cough 20709628 Completed 201201/10/2014 IMPRESSI ON: X 4 DAYS, NO FEVERS AND WITH CLEAR LUNGS. PER PT REPORT DOES HAVE TENDENCY TO DEVELOP BRONCHIT IS. PROVIDED WITH SAMPLE ADVAIR INHALER AND INSTRUCT ED RE USE. REC REST, FLUIDS, OTC COUGH MED OK. CALL OFFICE FOR WORSENIN G/PRN.; RECORDED 05/17/20 13 8:21AM BY SHARON DE OLIVEIRA ON/J CARLOS [facility] 7 11:20:15 Influenz a vaccine needed [id number] 06 Completed 201201/10/2014 RECORDED 05/17/20 13 8:21AM BY SHARON DE OLIVEIRA/J CARLOS Wolff MD [address] [address], [place], [address] , [facility] 6 07:11:06 Adult health examinat ion Completed 201201/10/2014 RECORDED 05/17/20 13 8:20AM BY SHARON DE OLIVEIRA/J CARLOS Wolff MD [address] [address], [place], [address] , [facility] 6 07:11:06 Hypercho lesterol emia 79057090 Completed 201101/10/2014 RECORDED 04/20/20 12 12:49PM BY SHARON DE OLIVEIRA/J CARLOS Wolff MD [address] [facility] [address], [place], [address] , [facility] 6 07:11:06 Impacted mary 06473882 Completed 201201/10/2014 RECORDED 05/17/20 13 8:21AM BY SHARON DE OLIVEIRA ON/ADDLETY [place] 7 11:19:47 Injury of elbow 037310230 Completed 201301/10/2014 RECORDED 08/11/19 14 8:21AM BY SHARON DE OLIVEIRA ON/J CARLOS Wolff MD [address] [facility] [address], [place], [address] , [facility] 6 07:11:06 Screenin g for malignan t neoplasm of breast Completed 201201/10/2014 RECORDED 05/17/20 13 8:21AM BY SHARON DE OLIVEIRA/J CARLOS Wolff MD [address] [facility] [address], [place], [address] , [facility] 6 07:11:06 Neck pain 11981570 Completed 201201/10/2014 STORY: PROBLEM SINCE 2007. SEEN BY DR NEWMAN, DR COHEN AND DR TEJEDA. ALSO SEEN BY ACUPUNCT URE AND CHIROPRA CTY AND PAIN MGMT. RECD INJECTIO NS W/O MUCH HELP. WANTS TO AVOID NARCOTIC S. USING TRAMADOL AND SKELAXIN WITH SOME HELP.; RECORDED 08/18/19 13 9:12AM BY SHARON DE OLIVEIRA/J ACRLOS Wolff MD [address] [facility] [address], [place], [address] , [facility] 6 07:11:06 Osteoart hritis 728644841 Completed 201201/10/2014 STORY: INVOLVIN G MOST JOINTS. SEEN BY RHEUM IN THE PAST. ADVISED ON EXERCISE AND NSAID'S. ; RECORDED 08/18/19 13 9:12AM BY SHARON DE OLIVEIRA ON/J CARLOS Wolff MD [address] [facility] [address], [place], [address] , [facility] 6 07:11:06 Impacted cerumen 89129979 Completed 08/12/2016 Sheeba espana, [facility] 7 11:19:47 Otalgia 83840133 Active Not Available [facility] 3 22:22:04 Acute upper respirat ory infectio n 21218561 Completed 08/12/2016 Sheeba espana, [facility] 7 11:20:01 Wheezing 43321928 Completed 08/12/2016 Sheeba espana, [facility] 7 11:19:58 Syncope 906817102 Completed 08/12/2016 Sheeba espana, [facility] 7 11:19:43 Hearing loss 89767941 Active hearing aids may be helpful but she is currentl y not interest ed. Not Available [facility] 3 22:22:04 Paresthe angelica of [place] extrem[place] y 448431842 Active Followed by Dr Barber and schedule d for EMG Not Available [facility] 3 22:22:04 Adult health examinat ion Completed 04/06/2015 Herber Wolff MD [address] [facility] [address], [place], [address] , [facility] 6 07:11:06 Menopaus e present 644283372 Active Not Available [facility] 3 22:22:04 Osteopor osis 56638457 Active Not Available [facility] 3 22:22:04 Multiple joint pain 76763692 Completed 09/25/2016 Sheeba espana, [facility] 7 16:05:33 Patient status finding 650816002 Completed 201303/29/2014 RECORDED 08/11/19 14 3:33PM BY SELVIN HERNADEZ MA, OFFICE VISIT Herber Wolff MD [address] [facility] [address], [place], [address] , [facility] 6 07:11:06 Screenin g for malignan t neoplasm of cervix Completed 201212/14/2013 RECORDED 05/17/20 13 8:21AM BY SUZANNE DE OLIVEIRAATI ON/ADDLETY Wolff MD [address] [facility] [address], [place], [address] , [facility] 6 07:11:06 Back problem 932104538 Completed 201303/29/2014 RECORDED 08/11/19 14 3:33PM BY SELVIN HERNADEZ MA, OFFICE VISIT Herber Wolff MD [address] [facility] [address], [place], [address] , [facility] 6 07:11:06 Low back pain 860470654 Active PSSP; received injectio n for radiculo stefanie and paresthe anna Not Available [facility] 3 22:22:04 Chronic pain 18956759 Active On pain meds initiall y started by Dr Bailey. Kayleigh Gupta MA [facility], [facility] 4 14:06:20 Screenin g for malignan t neoplasm of colon Completed 201212/14/2013 RECORDED 05/17/20 13 8:21AM BY DAVONTE GREENFIELD I, SUZANNEATI ON/ADDLETY Wolff MD [address] [facility] [address], [place], [address] , [facility] 6 07:11:06 Constipa tion 27538421 Active Not Available [facility] 3 22:22:04 Cough 63193380 Completed 201212/14/2013 IMPRESSI ON: X 4 DAYS, NO FEVERS AND WITH CLEAR LUNGS. PER PT REPORT DOES HAVE TENDENCY TO DEVELOP BRONCHIT IS. PROVIDED WITH SAMPLE ADVAIR INHALER AND INSTRUCT ED RE USE. REC REST, FLUIDS, OTC COUGH MED OK. 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 Not Available [facility] 3 22:22:04 Pain in elbow 20577834 Completed 08/12/2016 Sheeba espana, [facility] 7 11:20:12 Influenz a vaccine needed 52598125207 06 Completed 201212/14/2013 RECORDED 05/17/20 13 8:21AM BY SHARON DE OLIVEIRA ON/ADD Herber Wolff MD [address] [facility] [address], [place], [address] , [facility] 6 07:11:06 Adult health examinat ion Completed 201212/14/2013 RECORDED 05/17/20 13 8:20AM BY SHARON DE OLIVEIRA ON/ADDEN DUM Herber Wolff MD [address], [place], [address] , [facility] 6 07:11:06 History of malignan t neoplasm of cervix 628728647 Completed 08/12/2016 Sheeba espana, [facility] 7 11:19:55 Pure hypercho lesterol emia 166562317 Completed 07/03/2016 Herber Wolff MD [address] [facility] [address], [place], [address] , [facility] 7 16:02:27 Hypercho lesterol emia 92996540 Completed 201112/14/2013 RECORDED 04/20/20 12 12:49PM BY SHARON DE OLIVEIRA ON/J CARLOS Wolff MD [address] [facility] [address], [place], [address] , [facility] 6 07:11:06 Impacted cerumen 00898426 Completed 201212/14/2013 RECORDED 05/17/20 13 8:21AM BY SHARON DE OLIVEIRA ON/ADDEN ZOIE [place] 7 11:19:47 Injury of elbow 317509225 Completed 201312/14/2013 RECORDED 08/11/19 14 8:21AM BY SHARON DE OLIVEIRA ON/J CARLOS Wolff MD [address] [facility] [address], [place], [address] , [facility] 6 07:11:06 Screenin g for malignan t neoplasm of breast Completed 201212/14/2013 RECORDED 05/17/20 13 8:21AM BY SHARON DE OLIVEIRA ON/J CARLOS Wolff MD [address] [facility] [address], [place], [address] , [facility] 6 07:11:06 Neck pain 94868068 Completed 201212/14/2013 STORY: PROBLEM SINCE 2007. SEEN BY DR NEWMAN, DR COHEN AND DR TEJEDA. ALSO SEEN BY ACUPUNCT URE AND CHIROPRA CTY AND PAIN MGMT. RECD INJECTIO NS W/O MUCH HELP. WANTS TO AVOID NARCOTIC S. USING TRAMADOL AND SKELAXIN WITH SOME HELP.; RECORDED 08/18/19 13 9:12AM BY SHARON DE OLIVEIRA/J CARLOS Wolff MD [address] [facility] [address], [place], [address] , [facility] 6 07:11:06 Osteoart hritis 331276579 Completed 201212/14/2013 STORY: INVOLVIN G MOST JOINTS. SEEN BY RHEUM IN THE PAST. ADVISED ON EXERCISE AND NSAID'S. ; RECORDED 08/18/19 13 9:12AM BY SHARON DE OLIVEIRA ON/ADDEN DUM Herber Wolff MD [address] [facility] [address], [place], [address] , [facility] 6 07:11:06 Chronic pain syndrome 143119550 Completed 201303/29/2014 IMPRESSI ON: RECEIVIN G MEDS FROM PAIN MGMT BUT MAY HAVE THIS TRANSFER RED HERE.; RECORDED 11/02/19 14 8:06AM BY ALIYAH DENISE, HISTORIC AL SUMMARY Herber Wolff MD [address] [facility] [address], [place], [address] , [facility] 6 07:11:06 Inspirat ory wheezing 50995913 Active Not Available [facility] 3 22:22:04 Upper respirat ory infectio n 98313242 Completed 08/12/2016 Sheeba espana, [facility] 7 11:20:18 Cough 06881847 Completed 08/12/2016 Sheeba espana, [facility] 7 11:20:15 Chronic neck pain 11308753058 07 Active 2006 Not Available [facility] 3 22:22:04 Fatigue 01230594 Completed 201609/22/2017 Herber Wolff MD [address] [facility] [address], [place], [address] , [facility] 8 17:05:44 Hyperlip idemia 50418079 Active 2017 Not Available [facility] 3 22:22:04 Fatigue 74868189 Active 2017 Not Available [facility] 3 22:22:04 Idiopath ic peripher al neuropat hy 94257837 Active 2017 Not Available [facility] 3 22:22:04 Muscle spasm of head and/or neck 82714169 Active 2018 Not Available [facility] 3 22:22:04 Pain of right shoulder joint 13177915495 042114 Active 2020 Injected at [facility] October 2020. Not Available [facility] 3 22:22:04 Pneumoni tis 453257202 Active 2022 Not Available [facility] 3 22:22:04 Hypergly cemia 42341767 Active 2023 A1C of 6.October. Herber Wolff MD [address] [address], [place], [address] , [facility] 4 14:26:34 Notes:Some problems listed i n Document: #[id number] could not be added to this patient's chart. Please review this document and add these problems to the patient's chart manually as needed. Problem Notes None recorded. Procedures Surgical History Date Name Laterality Status Provider Name and Address Organization Details Recorded Time 04/26/20 24 Cerumen Removal completed KEILA DYE [address], [address], [facility] 04/26/2024 14:59:16 01/08/20 24 Chronic Pain Assessment completed Jacinta Babin MA [facility] 01/08/2024 14:05:00 11/15/19 23 Chronic Pain Assessment completed Kylah Wyatt MA [facility] 11/14/2022 14:11:38 09/07/19 23 Cerumen Removal completed MARGOT KEMP MD [address], [address], [facility] 09/06/2022 09:41:32 08/31/19 23 Cerumen Removal completed MARGOT KEMP MD [address], [address], [facility] 08/30/2022 11:12:20 07/24/19 23 Chronic Pain Assessment completed Kenzie Mcconnell MA [facility] 07/24/2022 14:16:12 05/01/20 22 Chronic Pain Assessment completed Kylah Waytt MA [facility] 05/01/2022 14:26:55 01/03/20 22 Chronic Pain Assessment completed Kylah Wyatt MA [facility] 01/02/2022 11:08:11 09/27/19 22 Chronic Pain Assessment completed Kylah Wyatt MA [facility] 09/26/2021 15:29:54 06/27/19 22 Chronic Pain Assessment completed Kylah Wyatt MA [facility] 06/27/2021 14:03:36 12/19/19 21 Chronic Pain Assessment completed Jacinta Babin MA [facility] 12/18/2020 13:17:40 11/17/19 21 injection completed Dorcas Denise [facility] 12/22/2020 15:02:09 09/21/19 21 Chronic Pain Assessment completed Sue Flynn MA [facility] 09/20/2020 14:24:01 06/22/19 21 Chronic Pain Assessment completed Sue Flynn MA [facility] 06/22/2020 14:21:42 03/28/20 20 Chronic Pain Assessment completed Sue Flynn MA [facility] 03/28/2020 13:40:48 12/14/19 20 Chronic Pain Assessment completed Sue Flynn MA [facility] 12/14/2019 14:42:58 09/09/19 20 Chronic Pain Assessment completed Davonte Sheikh [facility] 09/09/2019 12:46:13 06/14/19 20 Chronic Pain Assessment completed Davonte Sheikh [facility] 06/14/2019 14:30:13 03/08/20 19 Chronic Pain Assessment completed Davonte Sheikh [facility] 03/08/2019 15:02:32 12/08/19 19 Chronic Pain Assessment completed Davonte Sheikh [facility] 12/07/2018 14:49:14 09/11/19 19 Chronic Pain Assessment completed Jud Weldon MA [facility] 09/10/2018 16:16:55 06/15/19 19 Chronic Pain Assessment completed Davonte Sheikh [facility] 06/15/2018 09:38:32 03/26/20 18 open capsulectomy of breast completed Dorcas Denise [facility] 04/01/2018 11:51:23 03/26/20 18 lumpectomy of breast completed Madelaine chaudhari MA [facility] 07/15/2019 15:50:25 03/13/20 18 Chronic Pain Assessment completed Terri Xie [facility] 03/13/2018 16:30:49 01/08/20 18 Chronic Pain Assessment completed Davonte Sheikh [facility] 01/07/2018 14:17:18 09/23/19 18 Mini-Cog Test completed Sheeba Montenegro MA [facility] 09/22/2017 14:35:59 09/23/19 18 Chronic Pain Assessment completed Sheeba Monten[place]ro MA [facility] 09/22/2017 14:32:39 03/27/20 17 Chronic Pain Assessment completed Davonte Sheikh [facility] 03/27/2017 09:31:05 12/26/19 17 Chronic Pain Assessment completed Davonte Sheikh [facility] 12/25/2016 15:45:16 09/26/19 17 Chronic Pain Assessment completed Sheeba Monten[place]ro MA [facility] 09/25/2016 16:10:30 04/02/20 16 Chronic Pain Assessment completed Jacinta Babin MA [facility] 04/02/2016 16:14:32 01/01/20 16 Chronic Pain Assessment completed Davonte Sheikh [facility] 01/01/2016 14:30:55 10/04/19 16 Chronic Pain Assessment completed Davonte Sheikh [facility] 10/04/2015 16:30:48 09/11/19 16 Biopsy skin lesion completed Samaria Hays [facility] 09/14/2015 11:29:12 06/26/19 16 Most Recent Bone Density completed Kylah Wyatt MA [facility] 09/26/2021 15:16:35 05/09/20 15 Breast Implants completed Dorcas Howie [facility] 05/11/2015 15:24:44 11/22/19 15 Most Recent Mammogram completed Kylah Wyatt MA [facility] 09/26/2021 15:15:56 11/22/19 15 Screen mammo doc rev completed Davonte Sheikh [facility] 04/05/2015 11:08:02 07/29/19 15 Echo Transthoracic completed Herber Wolff MD [address] [address], [place], [address], [facility] 10/05/2014 06:57:19 02/01/20 13 Cancer Surgery completed Kylah Wyatt MA [facility] 09/26/2021 15:14:54 11/01/19 13 Breast Biopsy completed Kylah Wyatt MA [facility] 09/26/2021 15:14:54 11/27/19 08 Date of Last Colonoscopy completed Madelaine chaudhari MA [facility] 09/28/2021 14:12:22 11/27/19 08 Colonoscopy completed Madelaine chaudhari MA [facility] 09/28/2021 14:13:39 06/02/19 01 Orthopedic Surgery completed Kylah Wyatt MA [facility] 09/26/2021 15:14:54 06/02/19 01 Orthopedic Surgery completed Herber Wolff MD [address] [facility] [address] [facility], [place], [address], [facility] 03/29/2014 13:48:05 08/31/18 76 Cancer Surgery completed Davonte Sheikh [facility] 07/06/2015 15:30:36 Partial hysterectomy completed Madelaine chaudhari MA [facility] 07/15/2019 15:50:37 Imaging Results None recorded. Procedure Notes None recorded. Medical Equipment None Reported. Allergies Allergen ID Allergen Name Allergen Category Reaction Reaction Severity Criticality Documentation Date Start Date Code Code System Note Provider Name and Address Organization Details Recorded Time 94435 diclofena c Not available nausea severe Not available 12/18/2020 3355 RxNorm Not Available [facility] 3 22:22:01 4835 Vaccine product containin g only Clostridi um tetani antigen (medicina l product) medicatio n Not available Not available Not available 12/14/20132013 75355 2002 SNOMED [facility] 7 16:07:23 Medications Name Sig Start Date Stop Date Status Note LastModified by Organization Details LastModified Time tretinoin 0.025 % crea active Not Available Not Available Not Available metaxalon e 800 mg tabs 4 tablets daily 04/28 completed Not Available Not Available Not Available fentanyl 25 mcg/hr pt72 active Not Available Not Available Not Available cephalexi n 500 mg caps active Not Available Not Available Not Available simvastat in 20 mg tabs active Not Available Not Available Not Available fluarix quadrival ent .5 ml lobo active Not Available Not Available Not Available tramadol hcl er 100 mg tb24 active Not Available Not Available Not Available Prescript ion - Prior Authoriza tion Request 10/07 completed Not Available Not Available Not Available diazepam 5 mg tabs active Not Available Not Available No t Available gabapenti n 300 mg caps active Not Available Not Available Not Available nortripty line hcl 10 mg caps active Not Available Not Available Not Available methylphe [...] 13 9:34AM BY HERBER DUPONT MD, ANNOTATI ON/ADDEN DUM; Not Available Not Available Not Available [...] Not Available Not Available Not Available Fluvirin 2696-1503 45 mcg (15 mcg x 3)/0.5 mL intramusc ular suspensio n active Not Available Not Available Not Available naloxone 4 mg/actuat ion nasal spray one spray in one nostril, may repeat dose every 2-3min until pt responsi ve or EMS arrives 12/13 completed Not Available Not Available Not Available Fluzone High-Dose 1422-3999 (PF) 180 mcg/0.5 mL intramusc ular syringe [...] Details Last Updated DateTime 4 157.48 cm 18.8 kg/m2 37212.0 1 g 94 /min 92 % 92 % 97 [degF] 129 mm[Hg] 82 mm[Hg] Isabella Mayorga MA [facility] 4 14:31:36 Social History Question Answer Notes LastModified by Organizat ion Details LastModified Time Tobacco Smoking Status Never Smoker Not Available [facility] 04/04/2020 03:36:36 Do You Have An Advance Directive? Yes Information not available 05/01/2022 What Is Your Level Of Alcohol Consumption? None [id number] Information not available 04/04/2020 Is Blood Transfusion Acceptable In An Emergency? Yes [id number] Information not available 04/04/2020 What Is Your Level Of Caffeine Consumption? Moderate 1 Cup Coffee Daily Information not available 11/14/2022 How Much Tobacco Do You Chew? None [id number] Information not available 04/04/2020 In The 14 Days Before Symptom Onset, Have You Had Close Contact With A Laboratory-confir med COVID-19 While That Case Was Ill? No Information [...] Type Of Diet Are You Following? REGULAR [id number] Information not available 04/04/2020 Which Illicit Or Recreational Drugs Have You Used? None [id number] Information not available 04/04/2020 Do You Or Have You Ever Used E-cigarettes Or Vape? 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 16+yearssincel huyen Information not available 09/26/2021 Live Alone Or With Others? With Others Information not available 05/01/2022 Do You Take Precautions To Prevent Distracted Driving? Yes Information not available 04/05/2015 How Often Do You Need To Have Someone Help You When You Read Instructions, Pamphlets, Or Other Written Material From Your Doctor Or Pharmacy? Never Information not available 04/05/2015 Have You Served In The ? No Information not available 07/03/2016 Have You Or Anyone In Your Household Had Any Of The Following Symptoms In The Last 14 Days: Sore Throat, Cough, Chills, Body Aches For Unknown Reasons, Shortness Of Breath For Unknown Reasons, Loss Of Smell, Loss Of Taste, Fever At Or Greater Than 100 Degrees Fahrenheit? No [email or web address] Information not available 12/14/2019 Are You Or Anyone In Your Household A Health Care Provider Or Emergency Responder? No [email or web address] Information not available 12/14/2019 To The Best Of Your Knowledge Have You Been In Close Proximity To Any Individual Who Tested Positive For COVID-19? No [email or web address] Information not available 12/14/2019 Have You Recently Traveled To A COVID-19 High Risk Area Or Gathering In The Last 10 Days? No [id number] Information not available 06/22/2020 What Was The [...] available 05/01/2022 Are You Sexually Active? No [id number] Information not available 04/04/2020 Smoke Alarm In [...] Used Smokeless Tobacco? Never Used Smokeless Tobacco [id number] Information not available 04/04/2020 How Much Tobacco Do You Smoke? No [id number] Information not available 04/04/2020 Do You Use Any Illicit Or Recreational Drugs? No Information not available 05/01/2022 Do You Use Sunscreen Routinely? Yes [id number] Information not available 04/04/2020 How Many Years [...] you able to care for yourself? Yes [id number] Information not available 04/04/2020 What is your [...] Diseases N Hyperthyroidism N Breast Cancer Y Hypothyroidism N Lung Disease N Depression N COPD N Defects or Inherited Disease N Anesthesia Complications N Headaches/Migraines N Anxiety Disorder N Varicose Veins N Obesity N Vision or Eye Problems Y Arthritis Y Head Injury/Concussion N Infertility N Polyps N Congenital Anomalies N Acid Reflux (GERD) [...] virus, trivalent, PF 5 completed Not Available [facility] 01/09/2023 22:22:05 Influenza, high-dose, trivalent, PF 6 completed Not Available [facility] 01/09/2023 22:22:04 COVID-19, mRNA, LNP-S, PF, 100 mcg/0.5mL dose or 50 mcg/0.25mL dose 1 completed Not Available [facility] 01/09/2023 22:22:04 COVID-19, mRNA, LNP-S, PF, 100 mcg/0.5mL dose or 50 mcg/0.25mL dose 1 completed Not Available [facility] 01/09/2023 22:22:04 Influenza, split virus, trivalent, preservative 4 completed Not Available [facility] 01/09/2023 22:22:05 pneumococcal polysaccharide PPV23 5 completed Not Available [facility] 06/19/2019 02:21:42 Influenza, high-dose, trivalent, PF 6 completed Not Available [facility] 01/09/2023 22:22:04 Influenza, high-dose, trivalent, PF 6 completed Not Available [facility] 01/09/2023 22:22:05 Influenza, adjuvanted, trivalent, PF 4 completed HILLARY Trujillo, [facility] 04/06/2024 14:31:53 Pneumococcal conjugate PCV 13 7 completed Not Available [facility] 06/19/2019 02:21:37 Influenza, high-dose, trivalent, PF 7 completed Not Available [facility] 06/19/2019 02:22:21 Influenza, high-dose, trivalent, PF 8 completed Not Available [facility] 06/19/2019 02:22:14 Influenza, split virus, trivalent, PF 2 completed Not Available [facility] 01/09/2023 22:22:05 influenza, seasonal, intradermal, preservative free 3 completed Not Available [facility] 01/09/2023 22:22:05 Influenza, high-dose, trivalent, PF 0 completed HILLARY Puga, [facility] 07/15/2019 16:02:23 Influenza, high-dose, quadrivalent, PF 0 completed Herber Wolff MD [address] [address], [place], [address], [facility] 03/28/2020 13:58:34 Influenza, high-dose, quadrivalent, PF 1 completed HILLARY Baez, [facility] 03/21/2021 15:25:06 Influenza, high-dose, quadrivalent, PF 3 completed Herber Wolff MD [address] [facility] [address], [place], [address], [facility] 03/05/2023 18:41:17 Past Encounters Encounter ID Performer Location Encounter Start Date Encounter Closed Date Diagnosis/Indication Diagnosis SNOMED-CT Code Diagnosis ICD10 Code [id number] Herber Wolff MD Main Office [address] [facility] [address] [place] [address] 04/06/2024 14:26:38 04/06/2024 15:32:44 Chronic pain 17855566 G89.29 Idiopathic peripheral neuropathy 57976745 G60.9 Prediabetes 049492328 R7 3.03 Anxiety ab out loss of memory 477568421 F41.8 Health Concerns Section Related Observation LastModified by Organization Detai ls LastModified Time None Recorded Concern Status LastModified by Organization Details LastModified Time None Recorded Payers Encounter Date Sequence Insurance Name Policy Number Policy Costello Covered Member ID Costello Member ID Guarantor Name 04/06/2024 2 [facility] (MEDICARE SUPPLEMENT) Jacqueline Fallon [id number] Jacqueline Fallon 04/06/2024 1 [place] [facility] [employer] Jacqueline Fallon [id number] Jacqueline Fallon Notes Date Note Type Note Provider Name and Address Organization Details Recorded Time 04/06/2024 text/html Generic HPI TemplateReported bypatient.Notes:Her chronic pain has been slowly getting worse over time. She continues with meds and structural release which is a traction for her head/neck. She has been seen by Dr Bailey twice over the last few years. He has made some suggestions concerning her regimen. He suggests stopping the fentanyl and starting her on buprenorphan. We decided to hold off on any changes until we start to transition her to a new provider. Another limiting symptom for her is the peripheral neuropathy. She was seen by Dr Barber and tried on gabapentin which did not help. She has had some falls but has not injured herself. Her chronic pain has been a problem since around 2006 and there was no precipitating event. Her peripheral neuropathy has been a problem since 2012. Her current regimen was started by Dr Bailey years ago and has been continued by our office. She has concerns about her memory. She seems to be forgetting appointments and when driving to familiar places she says that often times the buildings/surroundings look unfamiliar. She has a fhx of dementia in a sister who is 2 years older. She has been under a lot of stress recently in dealing with her 's health issues. We discussed a w/u for memory and a referral to memory disorders clinic but she declines for now. Herber Wolff MD [address] [address], [place], [address], [facility] 04/07/2024 09:29:06 OBGyn Episode No OBEpisode recorded.
[2024-05-19 12:43] LABS: Anion Gap 11 (12-20); Blood Urea Nitrogen 18 mg/dL (9-16); Calcium 9.6 mg/dL (8.4-10.2); Carbon Dioxide 31 mmol/L (22-29); Chloride 105 mmol/L (96-108); Estimated Glomerular Filt Rate > 60; Glucose Random 103 mg/dL (60-115); Potassium 4.4 mmol/L (3.3-5.1); Sodium 143 mmol/L (135-145)
[2024-05-19 13:15] LABS: Vitamin B12 922 pg/mL (200-900)
[2024-05-20 20:18] LABS: Lyme Blot 1.96 index
[2024-05-21 14:47] LABS: Lyme Abs Screen POSITIVE
[2024-05-22 20:53] LABS: IgA 224 mg/dL (70-320); IgG 650 mg/dL (600-1540); IgM 37 mg/dL (50-300)
[2024-05-24 18:38] LABS: 18 KD (IgG) Band NON-REACTIVE; 23 KD (IgG) Band NON-REACTIVE; 23 KD (IgM) Band NON-REACTIVE; 28 KD (IgG) Band NON-REACTIVE; 30 KD (IgG) Band NON-REACTIVE; 39 KD (IgM) Band NON-REACTIVE; 39KD (IgG) Band NON-REACTIVE; 41 KD (IgM) Band NON-REACTIVE; 41KD (IgG) Band NON-REACTIVE; 45 KD (IgG) Band NON-REACTIVE; 58 KD (IgG) Band NON-REACTIVE; 66 KD (IgG) Band NON-REACTIVE; 93 KD (IgG) Band NON-REACTIVE; Lyme IgG Blot Interp NEGATIVE (NEGATIVE); Lyme IgM Blot Interp NEGATIVE (NEGATIVE)
== END 2024-05-19 11:31 | disposition home or self-care (01) ==
LOC: HO.LAB 11:30
PROVIDERS: PCP Internal Medicine; Visit Provider Psychiatry & Neurology Neurology
DX: G62.9 Polyneuropathy, unspecified (principal)
CPT/HCPCS: 36415; 80048; 82607; 82784; 86334; 86617; 86618